=== PATIENT | male | born 1960 | race Two or more races ===

== ENCOUNTER 2024-06-24 00:43 | Emergency (ER) | payer OTHER ==
[~2024-06-24] VITALS: Ht 177.8 cm; Wt 77.1 kg
[2024-06-24 00:53] VITALS: BP 156/97; TEMP 97.8; O2SAT 98
[2024-06-24] MEDS ORDERED: DIATR MEGLU/DIATRIZOATE SODIUM 30 ML BOTTLE (GASTROGRAPHIN) ONE (01:16)
[2024-06-24] MEDS: DIATR MEGLU/DIATRIZOATE SODIUM 30 ML BOTTLE (GASTROGRAPHIN) PO ONE (01:30)
== END 2024-06-24 02:43 ==
LOC: ER 00:45
DX: K94.23 Gastrostomy malfunction (principal); E11.22 Type 2 diabetes mellitus with diabetic chronic kidney disease; N18.9 Chronic kidney disease, unspecified; Z86.73 Personal history of transient ischemic attack (TIA), and cerebral infarction without residual deficits
CPT/HCPCS: 99284; 43762; 74018; Q9963 ×2